=== PATIENT | female | born 1955 | race Native Hawaiian/Other Pacific Islander ===

== ENCOUNTER 2017-10-18 14:18 | Inpatient (IN) | payer BC ==
[~2017-10-18] VITALS: Ht 165.1 cm; Wt 56.8 kg
[2017-10-18 14:20] VITALS: BP 140/89; TEMP 100.6
[2017-10-18 15:37] LABS: PLATELET COUNT 214 K/uL (152-353)
[2017-10-18 15:49] LABS: POTASSIUM 3.8 mmol/L (3.6-5.2); SODIUM 134 mmol/L (136-145)
[2017-10-18 17:57] VITALS: BP 135/84
[2017-10-18 20:25] VITALS: BP 141/80; TEMP 99; Ht 165.1 cm; Wt 56.8 kg
[2017-10-19] VITALS (24 sets, daily range): BP systolic 90–149; BP diastolic 52–95; TEMP 97.2–100.2
[2017-10-19 04:46] LABS: POTASSIUM 3.3 mmol/L (3.6-5.2)
[2017-10-19 04:56] LABS: PLATELET COUNT 179 K/uL (152-353)
[2017-10-19 15:10] LABS: PARTIAL THROMBOPLASTIN TIME 42.8 SECONDS (24.5-33.6)
[2017-10-20] VITALS (14 sets, daily range): BP systolic 116–137; BP diastolic 74–92; TEMP 98.1–98.7
[2017-10-20 09:10] LABS: PLATELET COUNT 90 K/uL (152-353)
[2017-10-20 09:40] LABS: POTASSIUM 4.2 mmol/L (3.6-5.2)
== END 2017-10-20 15:45 | disposition short-term general hospital (02) | DRG 189 ==
LOC: ED 14:18 → MED/SURG 17:58 → ED 19:29 → ICU 10-19 10:10
PROVIDERS: Family Medicine; Specialist; ADMIT Internal Medicine
DX: J96.01 Acute respiratory failure with hypoxia (principal); J10.08 Influenza due to other identified influenza virus with other specified pneumonia; D72.818 Other decreased white blood cell count; F41.8 Other specified anxiety disorders; G47.09 Other insomnia; R00.0 Tachycardia, unspecified
CPT/HCPCS: 36415; 36591; 36600; 80053; 80307; 82550; 82553; 82805; 83605; 83735; 83880; 84484; 85007; 85027; 85379; 85610; 85730; 87040; 87804; 93005; 94640; 94664; 94760; 96374; 96375; 99284; J0696; J1100; J1170; J1650; J1885; J2060; J2405; J2543; J2930; J3260

== ENCOUNTER 2017-10-20 15:17 | Outpatient (CLI) | payer BC | END 2017-10-20 16:26 | disposition short-term general hospital (02) | LOC: AMB 15:17 | DX: J96.01 Acute respiratory failure with hypoxia (principal); J10.08 Influenza due to other identified influenza virus with other specified pneumonia; D72.818 Other decreased white blood cell count; F41.8 Other specified anxiety disorders; G47.09 Other insomnia; R00.0 Tachycardia, unspecified | CPT/HCPCS: A0425; A0427 ==

== ENCOUNTER 2018-04-22 13:23 | Outpatient (CLI) | payer BC | END 2018-04-22 23:25 | disposition home or self-care (01) | LOC: RESP 13:23 | DX: J44.9 Chronic obstructive pulmonary disease, unspecified (principal); J93.9 Pneumothorax, unspecified ==

== ENCOUNTER 2019-06-22 13:53 | Outpatient (CLI) | payer BC | END 2019-06-22 23:02 | disposition home or self-care (01) | LOC: US 13:53 | DX: R22.2 Localized swelling, mass and lump, trunk (principal) ==

== ENCOUNTER 2020-06-21 15:41 | Outpatient (CLI) | payer BC | END 2020-06-21 20:02 | disposition home or self-care (01) | LOC: LAB 15:41 | DX: R05 Cough (principal) | CPT/HCPCS: 87070; 87077; 87186; 87205 ==

== ENCOUNTER 2021-03-12 09:10 | Outpatient (CLI) | payer BC | END 2021-03-12 23:59 | disposition home or self-care (01) | LOC: CT 09:10 | PROVIDERS: ATTEND Internal Medicine Sleep Medicine | DX: R09.02 Hypoxemia (principal) ==

== ENCOUNTER 2021-08-12 15:24 | Outpatient (CLI) | payer BC | END 2021-08-12 21:07 | disposition home or self-care (01) | LOC: MAMMO 15:24 | PROVIDERS: ATTEND Obstetrics & Gynecology | DX: Z12.31 Encounter for screening mammogram for malignant neoplasm of breast (principal) ==

== ENCOUNTER 2021-10-17 13:11 | Outpatient (CLI) | payer BC ==
[2021-10-17 13:35] LABS: PLATELET COUNT 167 K/uL (152-353)
== END 2021-10-17 21:24 | disposition home or self-care (01) ==
LOC: LABW 13:11
PROVIDERS: ATTEND Internal Medicine Sleep Medicine
DX: J47.9 Bronchiectasis, uncomplicated (principal)
CPT/HCPCS: 36415; 82784; 82785; 85027; 85652; 86431

== ENCOUNTER 2022-07-03 12:57 | Outpatient (CLI) | payer BC | END 2022-07-03 19:16 | disposition home or self-care (01) | LOC: RAD 12:57 | PROVIDERS: ATTEND Nurse Practitioner | DX: Z13.820 Encounter for screening for osteoporosis (principal); N95.8 Other specified menopausal and perimenopausal disorders ==

== ENCOUNTER 2022-09-01 15:14 | Outpatient (CLI) | payer BC | END 2022-09-01 19:00 | disposition home or self-care (01) | LOC: US 15:14 | PROVIDERS: ATTEND Internal Medicine | DX: I65.29 Occlusion and stenosis of unspecified carotid artery (principal) ==

== ENCOUNTER 2022-09-25 13:59 | Outpatient (CLI) | payer BC | END 2022-09-25 19:01 | disposition home or self-care (01) | LOC: MAMMO 13:59 | PROVIDERS: ATTEND Obstetrics & Gynecology | DX: Z12.31 Encounter for screening mammogram for malignant neoplasm of breast (principal) ==

== ENCOUNTER 2022-10-12 13:35 | Emergency (ER) | payer BC ==
[~2022-10-12] VITALS: Ht 167.6 cm; Wt 54.4 kg
[2022-10-12 14:57] VITALS: BP 124/73; TEMP 97.4
== END 2022-10-12 14:58 | disposition home or self-care (01) ==
LOC: ED 13:35
DX: N12 Tubulo-interstitial nephritis, not specified as acute or chronic (principal)
CPT/HCPCS: 81000; 87077; 87086; 87088; 87186; 96372; 99283; J0696; J1885

== ENCOUNTER 2023-02-14 12:04 | Emergency (ER) | payer OTHER ==
[~2023-02-14] VITALS: Ht 167.6 cm; Wt 54.4 kg
[2023-02-14 13:20] LABS: POTASSIUM 4.5 mmol/L (3.6-5.2)
[2023-02-14 13:22] LABS: PLATELET COUNT 177 K/uL (152-353)
[2023-02-14 14:57] VITALS: BP 135/82; TEMP 98.2
== END 2023-02-14 14:57 | disposition home or self-care (01) ==
LOC: ED 12:04
PROVIDERS: Family Medicine
DX: N39.0 Urinary tract infection, site not specified (principal); M54.9 Dorsalgia, unspecified; K59.00 Constipation, unspecified
CPT/HCPCS: 36415; 80053; 80307; 81000; 85027; 87077; 87086; 87088; 87186; 96372; 99283; J0696

== ENCOUNTER 2023-05-01 13:58 | Outpatient (CLI) | payer BC | END 2023-05-01 20:27 | disposition home or self-care (01) | LOC: CT 13:58 | PROVIDERS: ATTEND Internal Medicine Sleep Medicine | DX: J47.9 Bronchiectasis, uncomplicated (principal) ==

== ENCOUNTER 2023-07-03 11:28 | Outpatient (CLI) | payer BC | END 2023-07-03 19:25 | disposition home or self-care (01) | LOC: LABW 11:28 | PROVIDERS: ATTEND Nurse Practitioner Family | DX: J47.9 Bronchiectasis, uncomplicated (principal) | CPT/HCPCS: 87116; 87206 ==

== ENCOUNTER 2023-07-04 11:18 | Outpatient (CLI) | payer BC | END 2023-07-04 22:04 | disposition home or self-care (01) | LOC: LABW 11:18 | PROVIDERS: ATTEND Nurse Practitioner Family | DX: J47.9 Bronchiectasis, uncomplicated (principal) | CPT/HCPCS: 87116; 87206 ==

== ENCOUNTER 2023-07-05 11:30 | Outpatient (CLI) | payer BC | END 2023-07-05 19:39 | disposition home or self-care (01) | LOC: LABW 11:30 | PROVIDERS: ATTEND Nurse Practitioner Family | DX: J47.9 Bronchiectasis, uncomplicated (principal) | CPT/HCPCS: 87116; 87206 ==

== ENCOUNTER 2023-10-29 13:05 | Outpatient (CLI) | payer BC | END 2023-10-29 19:31 | disposition home or self-care (01) | LOC: MAMMO 13:05 | PROVIDERS: ATTEND Obstetrics & Gynecology | DX: Z12.31 Encounter for screening mammogram for malignant neoplasm of breast (principal) ==